=== PATIENT | male | born 1995 | race Caucasian/White ===

== ENCOUNTER 2023-01-11 17:26 | Emergency (ER) | payer SELFPAY | END 2023-01-11 18:55 | disposition home or self-care (01) | LOC: JD.ED 17:26 | DX: S62.633A Displaced fracture of distal phalanx of left middle finger, initial encounter for closed fracture (principal); Z86.16 Personal history of COVID-19; W23.0XXA Caught, crushed, jammed, or pinched between moving objects, initial encounter | CPT/HCPCS: 73140-26-F2; 73140-F2; 99283 ==